=== PATIENT | female | born 1995 | race American Indian/Alaskan Native ===

== ENCOUNTER 2017-04-30 15:54 | Emergency (ER) | payer MEDICAID, OTHER ==
[2017-04-30 16:12] VITALS: BMI 18.8
[2017-04-30 16:46] LABS: RBC URINE 1 /hpf (0-3); TRANSITIONAL EPITHIAL < 1 /hpf (0-3); URINE BACTERIA RARE (<OCC); URINE BILIRUBIN NEGATIVE (NEGATIVE); URINE BLOOD NEGATIVE (NEGATIVE); URINE COLOR Yellow (YELLOW); URINE GLUCOSE (UA) NORMAL (Normal); URINE KETONE NEGATIVE (NEGATIVE); URINE LEUKOCYTE ESTERASE NEG Leu/uL (Negative); URINE PROTEIN 1+ mg/dL (NEGATIVE); URINE UROBILINOGEN NORMAL mg/dL (0.2-1.0); WBC URINE 2 /hpf (0-5)
[2017-04-30] MEDS ORDERED: Sodium Chloride 0.9% 1,000 ML IV STA (16:59)
[2017-04-30] MEDS ORDERED: Sodium Chloride 0.9% 1,000 ML ONE (17:06)
[2017-04-30 17:20] LABS: BASO # 0.1 K/uL (0.0-0.2); BASO % 0.6 % (0.0-2.0); EOS # 0.1 K/uL (0.0-0.7); EOS % 1.1 % (0.0-4.0); HEMATOCRIT 32.2 % (34.0-47.0); LYMPH # 1.7 K/uL (1.0-4.3); LYMPH % 22.1 % (20.0-40.0); MEAN CELL VOLUME 88.3 fL (81.0-99.0); MONO # 0.5 K/uL (0.0-0.8); MONO % 5.9 % (0.0-10.0); RED CELL DISTRIBUTION WIDTH 14.1 % (11.5-14.5); WHITE BLOOD COUNT 7.9 K/uL (4.8-10.8)
[2017-04-30 17:28] LABS: CHLORIDE 103 mmol/L (98-107); SODIUM 136 mmol/L (132-148)
[2017-04-30 17:29] LABS: POTASSIUM 3.8 mmol/L (3.6-5.2)
[2017-04-30 17:30] LABS: GFR AFRICAN-AMERICAN > 60
[2017-04-30 17:31] LABS: ALB/GLOB RATIO 1.2 (1.0-2.1); ALKALINE PHOSPHATASE 28 U/L (38-126); ALT/SGPT 14 U/L (9-52); AST/SGOT 17 U/L (14-36); BILIRUBIN,TOTAL 0.6 mg/dL (0.2-1.3); BLOOD UREA NITROGEN 9 mg/dL (7-17); CARBON DIOXIDE 22 mmol/L (22-30); GLUCOSE,RANDOM 83 mg/dL (65-105); TOTAL PROTEIN 6.6 g/dL (6.3-8.3)
[2017-04-30 17:32] LABS: CALCIUM 8.5 mg/dl (8.6-10.4)
--- NOTE | 2017-04-30 18:52 | C.PDOC ---
History Of Present Illness <Pati Baker - Last Filed: 04/30/17 19:17> <Masha Delacruz - Last Filed: 04/30/17 20:06> 21 y/o female, who is currently 16 weeks presents to the ED for evaluation of right upper quadrant abdominal pain associated with nausea and vomiting for 2 days. Patient states she regularly sees her CONTINUITY MANAGER and underwent her last US when she was 12 weeks . The US was unremarkable at the time. She denies fever, chills, back pain, dysuria, vaginal bleeding/discharge. (Pati Baker) History Per: Patient History/Exam Limitations: no limitations Onset/Duration Of Symptoms: Days (2) Current Symptoms Are (Timing): Still Present Location Of Pain/Discomfort: RUQ Radiation Of Pain To:: None Associated Symptoms: Nausea, Vomiting. denies: Fever, Chills, Back Pain, Urinary Symptoms Exacerbating Factors: None Alleviating Factors: None Last Bowel Movement: Today Recent travel outside of the [place]: No Additional History Per: Patient Abnormal Vaginal Bleeding: No <Pati Baker - Last Filed: 04/30/17 19:17> <Masha Delacruz - Last Filed: 04/30/17 20:06> Time Seen by Provider: 04/30/17 16:33 Chief Complaint (Nursing): Abdominal Pain Past Medical History Reviewed: Historical Data, Nursing Documentation, Vital Signs - Medical History PMH: Gastritis Surgical History: No Surg Hx Family History: States: Unknown Family Hx - Social History Hx Alcohol Use: No Hx Substance Use: No - Immunization History Hx Tetanus Toxoid Vaccination: No Hx Influenza Vaccination: No Hx Pneumococcal Vaccination: No <Pati Baker - Last Filed: 04/30/17 19:17> Review Of Systems Except As Marked, All Systems Reviewed And Found Negative. Constitutional: Negative for: Fever, Chills Gastrointestinal: Positive for: Nausea, Vomiting, Abdominal Pain (RUQ) Genitourinary: Negative for: Dysuria, Vaginal Discharge, Vaginal Bleeding Musculoskeletal: Negative for: Back Pain <Pati Baker - Last Filed: 04/30/17 19:17> Physical Exam - Physical Exam Appears: Non-toxic, No Acute Distress Skin: Normal Color, Warm Head: Atraumatic, Normacephalic Eye(s): bilateral: Normal Inspection Oral Mucosa: Moist Neck: Normal ROM, Supple Chest: Symmetrical, No Deformity, No Tenderness Cardiovascular: Rhythm Regular, No Murmur Respiratory: Normal Breath Sounds, No Rales, No Rhonchi, No Wheezing Gastrointestinal/Abdominal: Tenderness (RUQ), No Guarding, No Rebound Back: Normal Inspection, No Vertebral Tenderness, No Paraspinal Tenderness Extremity: Normal ROM, Capillary Refill (less than 2 seconds ) Neurological/Psych: Oriented x3, Normal Speech, Normal Cognition Gait: Steady <Pati Baker - Last Filed: 04/30/17 19:17> ED Course And Treatment - Laboratory Results Result Diagrams: 04/30/17 17:14 04/30/17 17:14 O2 Sat by Pulse Oximetry: 100 (on RA) Pulse Ox Interpretation: Normal - CT Scan/US US abd Other Rad Studies (CT/US): Interpreted By Me, Read By Radiologist, Radiology Report Reviewed CT/US Interpretation: Accession No. : [id number]. Patient Name / ID : NIRANJAN SAWYER / [id number]. Exam Date : 04/30/2017 18:34:52 ( Approved ). Study Comment : Sex / Age : F / 21Y. Creator : Laura Mallory MD. Dictator : Laura Mallory MD. Larry Operator : Tool Profiling Machine Set Up Operator : Laura Mallory MD. Approver2 : Report Date : 04/30/2017 18:53:46. My Comment : . HISTORY: RUQ abd pain. COMPARISON: None available. TECHNIQUE: Sonographic evaluation of the right upper quadrant of the abdomen. FINDINGS: LIVER: Measures 15.5 cm in length and appears within normal limits of shape, size, and echotexture. No focal hepatic mass identified. The main portal vein appears patent with normal directional flow. No intrahepatic bile duct dilatation. GALLBLADDER: Contracted gallbladder state limits evaluation. No gallstones. No gallbladder wall thickening or pericholecystic edema. Negative sonographic Espinosa's sign as assessed by the programming director. COMMON BILE DUCT: Measures 3 mm. PANCREAS: Not well-visualized. RIGHT KIDNEY: Measures 12.2 x 4.4 x 4.4 cm in length. No obstructing calculus or hydronephrosis identified. AORTA: Limited visualization appears grossly unremarkable. IVC: Limited visualization appears grossly unremarkable. OTHER FINDINGS: None . IMPRESSION : No acute findings as above. Progress Note: US and labs ordered. Pt received IV fluids. <Pati Baker - Last Filed: 04/30/17 19:17> - Laboratory Results Result Diagrams: 04/30/17 17:14 04/30/17 17:14 <Masha Delacruz - Last Filed: 04/30/17 20:06> Disposition - Disposition Disposition Time: 19:18 <Pati Baker - Last Filed: 04/30/17 19:17> Counseled Patient/Family Regarding: Studies Performed, Diagnosis, Need For Followup - Disposition Disposition Time: 20:05 - POA Present On Arrival: None <Masha Delacruz - Last Filed: 04/30/17 20:06> - Disposition Referrals: Farhat Hernandez MD [Medical Doctor] - Condition: STABLE Additional Instructions: FOLLOW UP WITH YOUR CONTINUITY MANAGER WITHIN 1 WEEK USE TYLENOL IF NEEDED FOR PAIN DRINK PLENTY OF FLUIDS RETURN TO EMERGENCY ROOM IF SYMPTOMS WORSEN/RETURN Instructions: (ED) Print Language: VINCENTIAN - Clinical Impression Clinical Impression: Pelvic pain affecting - PA / HEAD IRRIGATOR / Resident Statement MD/DO has reviewed & agrees with the documentation as recorded. - Scribe Statement The provider has reviewed the documentation as recorded by the Scribe (Roya Gaxiola) <Pati Baker - Last Filed: 04/30/17 19:17> <Masha Delacruz - Last Filed: 04/30/17 20:06> - Scribe Statement All medical record entries made by the Scribe were at my direction and personally dictated by me. I have reviewed the chart and agree that the record accurately reflects my personal performance of the history, physical exam, medical decision making, and the department course for this patient. I have also personally directed, reviewed, and agree with the discharge instructions and disposition. (Pati Baker) Physician Patient Turnover Patient Signed Over To: Masha Delacruz Handoff Comments: Pelvic US and dispo <Pati Baker - Last Filed: 04/30/17 19:17> Addendum <Pati Baker - Last Filed: 04/30/17 19:17> <Masha Delacruz - Last Filed: 04/30/17 20:06> Addendum: 04/30/17 20:03 Patient currently resting comfortably, in no current pain/distress. On exam, abdomen is gravid, soft and nontender, (-) McBurney's, (-) Espinosa's. Blood work , UA, and US unremarkable. Patient is comfortable being discharged home at this time, and was instructed to follow up with her pyrotechnic mixer within 1 week. She understands she should return to ED if he develops any concerning symptoms. 04/30/17 20:05 Name: SILVERIO UREÑA Age: 21Years F Date: 04/30/2017 SSN: [id number] : 1995 Study: US LTD ONE OR MORE FETUSES Requesting Physician: Pati Baker PA-C Images: 42 Addl Studies: Provided Clinical History: abd pain CONFIDENTIALITY STATEMENT This transmission is confidential and is intended to be a privileged communication. It is intended only for the use of the addressee. Access to this message by anyone else is unauthorized. If you are not the intended recipient, any disclosure, copying, distribution or any action taken, or omitted to be taken in reliance on it is prohibited and may be unlawful. If you received this communication in error, please notify us by telephone, so that return of this document to us can be arranged. Page 1 of 2 EXAM: US First Trimester, Transabdominal CLINICAL HISTORY: 21 years old, female; Pain; complicated by abdominal or pelvic pain; Right upper quadrant; Second trimester; Gestational age or lmp: [id number]; ; Additional info: Abd pain TECHNIQUE: Real-time transabdominal obstetrical ultrasound of the maternal pelvis and a first trimester with image documentation. EXAM DATE/TIME: Exam ordered 04/30/2017 4:59 PM COMPARISON: No relevant prior studies available. FINDINGS: Biometry BPD = [3.42cm]; Estimated Menstrual Age = [16w4d]; Range = [10B5L-20H9W] HC = [12.1 cm]; Estimated Menstrual Age = [16w0d]; Range = [51T4S-08K6X] AC = [10 cm]; Estimated Menstrual Age = [16w0d]; Range = [02E0G-16I7Q] FL = [1.9 cm]; Estimated Menstrual Age = [15 w 5 d]; Range = [53U4A-75Q1W] HC/AC Ratio = [1.21] normal 1.06-1.33 EFW = 138 g plus or -20 g/5 ounces plus or minus one ounce [facility] Final Radiology Report [id number] Name: SILVERIO UREÑA Age: 21Years F Date: 04/30/2017 SSN: [id number] : 1995 Study: US LTD ONE OR MORE FETUSES Requesting Physician: Pati Baker PA-C Images: 42 Addl Studies: Provided Clinical History: abd pain CONFIDENTIALITY STATEMENT This transmission is confidential and is intended to be a privileged communication. It is intended only for the use of the addressee. Access to this message by anyone else is unauthorized. If you are not the intended recipient, any disclosure, copying, distribution or any action taken, or omitted to be taken in reliance on it is prohibited and may be unlawful. If you received this communication in error, please notify us by telephone, so that return of this document to us can be arranged. Page 2 of 2 Amniotic fluid = qualitatively normal Placenta: Anterior and free of the cervical os Presentation: Vertex HR =[128 bpm] Survey Stomach [Normal] Bladder [Normal] IMPRESSION: 1. Single live intrauterine with an estimated gestational age of 16 weeks and 1 day plus or minus one week and one day. 2. Incomplete survey. Thank you for allowing us to participate in the care of your patient. Dictated and Authenticated by: Yamileth Tristan MD 04/30/2017 7:51 PM Eastern Time ([place] & [place]) (Masha Delacruz)
--- NOTE | 2017-04-30 18:55 | US ---
HISTORY: RUQ abd pain COMPARISON: None available. TECHNIQUE: Sonographic evaluation of the right upper quadrant of the abdomen. FINDINGS: LIVER: Measures 15.5 cm in length and appears within normal limits of shape, size, and echotexture. No focal hepatic mass identified. The main portal vein appears patent with normal directional flow. No intrahepatic bile duct dilatation. GALLBLADDER: Contracted gallbladder state limits evaluation. No gallstones. No gallbladder wall thickening or pericholecystic edema. Negative sonographic Espinosa's sign as assessed by the cigarette packer. COMMON BILE DUCT: Measures 3 mm. PANCREAS: Not well-visualized. RIGHT KIDNEY: Measures 12.2 x 4.4 x 4.4 cm in length. No obstructing calculus or hydronephrosis identified. AORTA: Limited visualization appears grossly unremarkable. IVC: Limited visualization appears grossly unremarkable. OTHER FINDINGS: None . IMPRESSION: No acute findings as above.
--- NOTE | 2017-04-30 19:52 | US ---
EXAM: US First Trimester, Transabdominal CLINICAL HISTORY: 21 years old, female; Pain; complicated by abdominal or pelvic pain; Right upper quadrant; Second trimester; Gestational age or lmp: [id number]; ; Additional info: Abd pain TECHNIQUE: Real-time transabdominal obstetrical ultrasound of the maternal pelvis and a first trimester with image documentation. EXAM DATE/TIME: Exam ordered 04/30/2017 4:59 PM COMPARISON: No relevant prior studies available. FINDINGS: Biometry BPD = [3.42cm]; Estimated Menstrual Age = [16w4d]; Range = [19X8U-88J9T] HC = [12.1 cm]; Estimated Menstrual Age = [16w0d]; Range = [74P0G-17F6D] AC = [10 cm]; Estimated Menstrual Age = [16w0d]; Range = [61M5W-92I4J] FL = [1.9 cm]; Estimated Menstrual Age = [15 w 5 d]; Range = [59P3W-51L6W] HC/AC Ratio = [1.21] normal 1.06-1.33 EFW = 138 g plus or -20 g/5 ounces plus or minus one ounce Amniotic fluid = qualitatively normal Placenta: Anterior and free of the cervical os Presentation: Vertex HR =[128 bpm] Survey Stomach [Normal] Bladder [Normal] IMPRESSION: 1. Single live intrauterine with an estimated gestational age of 16 weeks and 1 day plus or minus one week and one day. 2. Incomplete survey.
[2017-04-30 20:22] VITALS: BP 100/68; PULSE 96; RESP 16; TEMP 98.4; O2SAT 99
== END 2017-04-30 20:22 | disposition home or self-care (01) ==
LOC: C.ER 15:54
DX: O26.892 Other specified pregnancy related conditions, second trimester (principal); R10.2 Pelvic and perineal pain; Z3A.16 16 weeks gestation of pregnancy
CPT/HCPCS: 76705; 76815; 80053; 81001; 83690; 84703; 85025; 96360; 99285; J7040